=== PATIENT | male | born 1960 | race Two or more races ===

== ENCOUNTER 2024-06-22 22:13 | Inpatient (IN) | payer OTHER ==
[~2024-06-22] VITALS: Ht 172.7 cm; Wt 114.9 kg
--- NOTE | 2024-06-22 22:22 | ED.PDOC ---
HPI Comments HPI: Poor Historian. 64-year-old male presents to the emergency department for one day history of left-sided chest pain nonradiating constant worse with deep inspiration. This happened while he was at rest at home 2 hours prior to arrival. Patient tried to shower see if the pain goes away but it did not. Patient has associated nonspecific shortness of breath. Past Medcial History: Diabetes, hypertension, hyperlipidemia Past Surgical History: Denies any Denies any allergies Patient denies any tobacco abuse REVIEW OF SYSTEMS: CONSTITUTIONAL: Denies acute: fever, diaphoresis, chills, generalized weakness. HEAD: Denies acute: headache, photophobia Eyes: Denies acute: Double vision, vision loss, eye pain, eye discharge. EARS: Denies acute: tinnitus, hearing loss, ear discharge, ear pain, THROAT: Denies acute: sore throat, swelling, difficulty swallowing , pain with swallowing, change in voice. NECK: Denies acute: neck pain, neck swelling, stiff neck. HEART: Denies acute : palpitations, LUNGS: Denies acute: wheezing, cough, hemoptysis ABDOMEN: Denies acute: abdominal pain, Nausea, Vomiting, diarrhea, melena , hematemesis, hematochezia SKIN: Denies acute: rash, redness, lesions, itchiness. EXTREMITIES: Denies acute: calf pain, numbness, tingling, weakness, denies pain in extremity. Denies acute: Low back pain. Neuro: Denies acute: focal neurological deficit, motor or sensory focal neurological deficit, tremors, seizure like activity, confusion, dizziness, change in mental status, loss of bowel or bladder function, cauda equina like symptoms. : Denies acute: dysuria, hematuria, flank pain, increase in urinary frequency. PSYCH: Denies acute: hallucination, suicidal ideation, homicidal ideation. PHYSICAL EXAM: General: no acute distress, awake and alert. Head: normocephalic, atraumatic. Neck: supple, trachea is midline, no swelling. Throat: Normal phonation. Eyes:, no erythema, no purulent discharge, no proptosis, no icterus. Heart: regular rate, regular rhythm, no significant murmur appreciated. Lungs: no apparent respiratory distress, Able to speak in full sentences. No wheezing, no rhonchi, no crackles. No stridors Clear to auscultation bilaterally. Abdomen: non tender to palpation, non distended, soft, no guarding, no rebound, + bowel sounds. Obese Neuro: Awake, Alert, oriented to name, self, situation, follows commands GCS=15. Speech is normal. Skin: no petechia, no purpura, no cyanosis, non-pale, not jaundice. Lower extremities: --1/4 bilateral - Pitting edema no deformity, no focal swelling, no calf TTP. Makes eye contact. moves all four extremities. Face: no apparent facial droop. Ambulating in the ED independently. Time Seen by MD: 22:15 Reviewed Notes: Nurses Notes, Medications, Allergies Allergies: Coded Allergies: NO KNOWN ALLERGIES (Unverified , 06/22/24) Home Meds Reported Medications Empagliflozin (Jardiance) 10 Mg Tab, 10 MG PO, TAB 06/23/24 Atorvastatin Calcium (ATORVASTATIN CALCIUM) 40 Mg Tab, 1 TAB PO QPM, #90 TAB 3 Refills 06/23/24 Atenolol (Atenolol) 25 Mg Tab, 1 TAB PO DAILY, #30 TAB 5 Refills 06/23/24 Losartan Potassium (Losartan Potassium) 25 Mg Tab, 1 TAB PO DAILY, #90 TAB 1 Refill 06/23/24 Metformin Hydrochloride (Metformin Hcl) 1,000 Mg Tab, 1 TAB PO BID, #60 TAB 5 Refills 06/23/24 Information Source: Patient Was a procedure done? Was a procedure done?: No CP Differential Dx Differential Diagnosis: N/A Differential Diagnosis: Other (Ddx include but not limitied to gastritis, musculoskeletal pain, radiculopathy, atypical chest pain, dissection, aneurysm, ACS, unstable angina, hiatal hernia, GERD, anxiety, costochondritis, PE, pneumothroax, neoplasm, cardiac ischemia, drug abuse, anemia.) X-Ray, Labs, Meds, VS Vital Signs Date Time Temp Pulse Resp B/P (MAP) Pulse Ox O2 Delivery O2 Flow Rate FiO2 06/22/24 22:18 90 06/22/24 22:13 98.2 93 20 152/69 (96) 93 Lab Test 06/22/24 22:21 Range/Units White Blood Count 14.6 H 4.4-10.8 10^3/uL Red Blood Count 5.48 4.5-5.90 10^6/uL Hemoglobin 14.8 13.5-17.5 g/dL Hematocrit 45.7 41.0-53.0 % Mean Corpuscular Volume 83.5 80.0-100.0 fL Mean Corpuscular Hemoglobin 27.0 L 28.0-32.0 pg Mean Corpuscular Hemoglobin Concent 32.4 32.0-36.0 g/dL Red Cell Distribution Width 14.1 11.8-14.3 % Platelet Count 354 140-450 10^3/uL Mean Platelet Volume 7.4 6.9-10.8 fL Neutrophils (%) (Auto) 67.5 37.0-80.0 % Lymphocytes (%) (Auto) 21.9 10.0-50.0 % Monocytes (%) (Auto) 7.3 0.0-12.0 % Eosinophils (%) (Auto) 2.4 0.0-7.0 % Basophils (%) (Auto) 0.9 0.0-2.0 % Neutrophils # (Auto) 9.9 H 1.6-8.6 10 ^3/uL Lymphocytes # (Auto) 3.2 0.4-5.4 10 ^3/uL Monocytes # (Auto) 1.1 0-1.3 10 ^3/uL Eosinophils # (Auto) 0.3 0-0.8 10 ^3/uL Basophils # (Auto) 0.1 0-0.2 10 ^3/uL Nucleated Red Blood Cells 0.2 % Erythrocyte Sedimentation Rate 13 0-20 mm/hr D-Dimer, Quantitative 0.34 0.0-0.49 mg/L FEU Sodium Level 136 136-145 mmol/L Potassium Level 3.8 3.5-5.1 mmol/L Chloride Level 105 98-107 mmol/L Carbon Dioxide Level 25 20-31 mmol/L Anion Gap 6 5-15 Blood Urea Nitrogen 6 L 9-23 mg/dL Creatinine 1.02 0.700-1.30 mg/dL Glomerular Filtration Rate Calc 83 >90 mL/min BUN/Creatinine Ratio 5.9 L 10.0-20.0 Serum Glucose 235 H 74-106 mg/dL Hemoglobin A1c 8.2 H <5.7 % A1C Calcium Level 9.4 8.7-10.4 mg/dL Total Bilirubin 0.4 0.2-1.0 mg/dL Aspartate Amino Transferase (AST) 23 13-40 U/L Alanine Aminotransferase (ALT) 30 7-40 U/L Alkaline Phosphatase 53 46-116 U/L Troponin I High Sensitivity < 3 L </=54 ng/L C-Reactive Protein High Sensitivity 0.30 <1.0 mg/dL B-Type Natriuretic Peptide 16.52 0-100 pg/mL Total Protein 7.4 5.7-8.2 g/dL Albumin 4.4 3.2-4.8 g/dL Vitamin B12 Level 259 211-911 pg/mL Vitamin D 25-Hydroxy 18.2 L 30.0-100 ng/mL Thyroid Stimulating Hormone (TSH) 2.08 0.55-4.78 uIU/mL [place] [address] Ph: [phone] DIAGNOSTIC IMAGING Diagnostic Imaging Report : [id number] Signed PATIENT: SADIE MCCORMICK ACCT: [id number] UNIT: [id number] : 1960 LOC: TELE ROOM / BED: [address] [place] [address] AGE / SEX: 64 / M ADM STATUS: ADM IN SERVICE 17 ORDERING PHYSICIAN: MANJEET DRAKE DO PROCEDURE(s): CXRP - CHEST PORTABLE REASON: cp ORDER NUMBER(s): [id number], ACCESSION NUMBER(s): [id number] CHEST RADIOGRAPH Indication:cp Technique: Single frontal view of the chest was obtained Comparison: None FINDINGS: Lines and Tubes: None Lungs: No focal consolidation. Pleura: No effusion. No pneumothorax. Cardiomediastinal contours: Unremarkable Bones: No acute osseous abnormality. IMPRESSION: No acute cardiopulmonary disease. ATED BY: ALESHA ALCALA DO DICTATED DATE/TIME: 06/22/242358 SIGNED BY: ALESHA ALCALA DO SIGNED DATE/TIME: 06/22/242358 CC: Time of 1ST Reevaluation: 22:40 Reevaluation 1ST: Improved Patient Education/Counseling: Diagnosis, Treatment Family Education/Counseling: No Family Present Comments Patient presented with the above HPI.-cardiac-----workup was initiated. patient was found with the above mentioned diagnosis. Patient was given: Aspirin and nitroglycerin sublingually Patient ED course and VS have been stabilized. Patient has been reassessed in the ED and remained in a stable condition. Pertinent incidental findings were discussed with the patient and/or family. Patient/family voices understanding and is agreeable with plan. Patient has been observed in the ED adequate length of time to insure improvement/stability. patient was admitted to the medicine team for further evaluation and treatment of their presentation. All the reports of any imaging studies that were ordered by myself were reviewed by myself. Departure 1 Departure Time of Disposition: 22:48 Impression: Primary Impression: Chest pain Disposition: ADMITTED INPATIENT Condition: Guarded Discharged With: Self Critical Care Note Critical Care Time?: No Heart Score Heart Score: Heart Score Response (Comments) Value History Slightly Suspicious 0 EKG Normal 0 Age 45-64 1 Risk Factors >3 or Hx ASHD 2 Troponin Normal limit 0 Total 3 MANJEET DRAKE DO Jun 22, 2024 22:22
[2024-06-22 22:35] LABS: Basophils # (auto) 0.1 10 ^3/uL (0-0.2); Basophils % (auto) 0.9 % (0.0-2.0); Eosinophils # (auto) 0.3 10 ^3/uL (0-0.8); Eosinophils % (auto) 2.4 % (0.0-7.0); Hematocrit 45.7 % (41.0-53.0); Hemoglobin 14.8 g/dL (13.5-17.5); Lymphocytes # (auto) 3.2 10 ^3/uL (0.4-5.4); Lymphocytes % (auto) 21.9 % (10.0-50.0); Mean Corpuscular Hgb Conc. 32.4 g/dL (32.0-36.0); Mean Corpuscular Volume 83.5 fL (80.0-100.0); Monocytes # (auto) 1.1 10 ^3/uL (0-1.3); Monocytes % (auto) 7.3 % (0.0-12.0); Neutrophils # (auto) 9.9 10 ^3/uL (1.6-8.6); Neutrophils % (auto) 67.5 % (37.0-80.0); Nucleated Red Blood Cells % 0.2 %; Platelet Count (auto) 354 10^3/uL (140-450); Red Blood Cells 5.48 10^6/uL (4.5-5.90); Red Cell Distribution Width 14.1 % (11.8-14.3); White Blood Cell 14.6 10^3/uL (4.4-10.8)
[2024-06-22 22:46] LABS: Alanine Aminotransferase 30 U/L (7-40); Albumin 4.4 g/dL (3.2-4.8); Alkaline Phosphatase 53 U/L (46-116); Anion Gap 6 (5-15); Aspartate Aminotransferase 23 U/L (13-40); BUN/Creatinine Ratio 5.9 (10.0-20.0); Blood Urea Nitrogen 6 mg/dL (9-23); Calcium 9.4 mg/dL (8.7-10.4); Carbon Dioxide 25 mmol/L (20-31); Chloride 105 mmol/L (98-107); Glucose 235 mg/dL (74-106); Potassium 3.8 mmol/L (3.5-5.1); Sodium 136 mmol/L (136-145)
[2024-06-22 22:47] LABS: Bilirubin, Total 0.4 mg/dL (0.2-1.0); Total Protein 7.4 g/dL (5.7-8.2)
--- NOTE | 2024-06-22 23:14 | DVHHPRES ---
History of Present Illness Resident Creating Document: MAYURI WARREN RESIDENT History of Present Illness This is a 64 years old male with past medical history of hypertension, hyperlipidemia, type 2 diabetes mellitus presented to the ED with a chief complaint of left-sided chest pain for 2 hours prior to this admission. Acco rding to the patient the pain is sharp stabbing, localized 8/10 and aggravated with deep breathing with no relieving factor and associated with dry cough and shortness of breath. He mentioned he never had this kind of pain before . The patient recently traveled to [place] and today he came back from [place] and denies any sick contact. Patient also denies dizziness, diaphoresis abdominal pain, nausea, vomiting or any change in bowel and bladder habit. PCP: Dr. Agustin Gonzalez Cardiovascular: HTN, hyperipidemia Endocrine: Diabetes Past Surgical History: None Family History: None Lives: with Family Past Social History Smoker 5 cigarettes/day for 40 yrs, occasional drinker and never tried any drugs Review of Systems Constitutional: No: Fever, Chills, Sweats, Weakness, Malaise, Other Eyes: No: Pain, Vision change, Conjunctivae inflammation, Eyelid inflammation, Other, Redness ENT: No: Ear pain, Ear discharge, Nose pain, Nose discharge, Nose congestion, Mouth pain, Mouth swelling, Throat pain, Throat swelling, Other Respiratory: Cough, Dry, Shortness of breath; No: SOB with excertion, Wheezing, Hemoptysis, Pleuritic Pain, Sputum, Wheezing, Other Cardiovascular: Chest Pain; No: Palpitations, Orthopnea, Paroxysmal Noc. Dyspnea, Edema, Lt Headedness, Other Gastrointestinal: No: Nausea, Vomiting, Abdominal Pain, Diarrhea, Constipation, Melena, Hematochezia, Other Genitourinary: No Dysuria, No Frequency, No Incontinence, No Hematuria, No Re tention, No Other Musculoskeletal: No: other, neck pain, shoulder pain, arm pain, back pain, hand pain, leg pain, foot pain Skin: No: Rash, Lesions, Jaundice, Bruising, Other Neurological: No: Weakness, Numbness, Incoordination, Change in speech, Confusion, Seizures, Other Allergies: Coded Allergies: NO KNOWN ALLERGIES (Unverified , 06/22/24) Exam Vital Signs Vital Signs Date Time Temp Pulse Resp B/P (MAP) Pulse Ox O2 Delivery O2 Flow Rate FiO2 06/22/24 22:18 90 10/28/24 22:13 98.2 20 152/69 (96) 93 General Appearance: Alert, Oriented X3, Cooperative, mild distress HEENT: Atraumatic, PERRLA, EOMI, Mucous membr. moist/pink Respiratory: Clear to auscultation, Normal air movement Cardiovascular: Regular rate, Normal S1, Normal S2, No murmurs Abdominal: Normal bowel sounds, Soft, No tenderness, No hepatospenomegaly, No masses Extremities: No clubbing, No cyanosis, No edema, Normal pulses, No tenderness/swelling Skin: No rashes, No breakdown, No significant lesion Neuro: Normal gait, Normal speech, Strength at 5/5 X4 ext, Normal tone, Sensation intact, Other (Grossly intact cranial nerves) Psych/Mental Status: Mental status NL, Mood NL Labs/Xrays Labs Test 06/22/24 22:21 Range/Units White Blood Count 14.6 H 4.4-10.8 10^3/uL Red Blood Count 5.48 4.5-5.90 10^6/uL Hemoglobin 14.8 13.5-17.5 g/dL Hematocrit 45.7 41.0-53.0 % Mean Corpuscular Volume 83.5 80.0-100.0 fL Mean Corpuscular Hemoglobin 27.0 L 28.0-32.0 pg Mean Corpuscular Hemoglobin Concent 32.4 32.0-36.0 g/dL Red Cell Distribution Width 14.1 11.8-14.3 % Platelet Count 354 140-450 10^3/uL Mean Platelet Volume 7.4 6.9-10.8 fL Neutrophils (%) (Auto) 67.5 37.0-80.0 % Lymphocytes (%) (Auto) 21.9 10.0-50.0 % Monocytes (%) (Auto) 7.3 0.0-12.0 % Eosinophils (%) (Auto) 2.4 0.0-7.0 % Basophils (%) (Auto) 0.9 0.0-2.0 % Neutrophils # (Auto) 9.9 H 1.6-8.6 10 ^3/uL Lymphocytes # (Auto) 3.2 0.4-5.4 10 ^3/uL Monocytes # (Auto) 1.1 0-1.3 10 ^3/uL Eosinophils # (Auto) 0.3 0-0.8 10 ^3/uL Basophils # (Auto) 0.1 0-0.2 10 ^3/uL Nucleated Red Blood Cells 0.2 % D-Dimer, Quantitative 0.34 0.0-0.49 mg/L FEU Sodium Level 136 136-145 mmol/L Potassium Level 3.8 3.5-5.1 mmol/L Chloride Level 105 98-107 mmol/L Carbon Dioxide Level 25 20-31 mmol/L Anion Gap 6 5-15 Blood Urea Nitrogen 6 L 9-23 mg/dL Creatinine 1.02 0.700-1.30 mg/dL Glomerular Filtration Rate Calc 83 >90 mL/min BUN/Creatinine Ratio 5.9 L 10.0-20.0 Serum Glucose 235 H 74-106 mg/dL Calcium Level 9.4 8.7-10.4 mg/dL Total Bilirubin 0.4 0.2-1.0 mg/dL Aspartate Amino Transferase (AST) 23 13-40 U/L Alanine Aminotransferase (ALT) 30 7-40 U/L Alkaline Phosphatase 53 46-116 U/L Troponin I High Sensitivity < 3 L </=54 ng/L B-Type Natriuretic Peptide 16.52 0-100 pg/mL Total Protein 7.4 5.7-8.2 g/dL Albumin 4.4 3.2-4.8 g/dL Assessment/Plan Assessment/Plan Assessment and plan: # Chest pain rule out ACS - Initial EKG and troponins are unremarkable - Ordered echo. # Chest pain likely due to pneumonitis - Patient complains of sharp left-sided chest pain with dry cough - History of traveling present - Chest x-ray revealed no acute cardiopulmonary disease - Patient is on 3 L oxygen with saturation 94% - Started IV ceftriaxone 1 g daily and IV azithromycin 500 mg daily # Acute respiratory failure likely due to pneumonitis - Patient is on 3 L oxygen with saturation 94% # Hypertensive heart disease - Losartan 25 mg daily and IV hydralazine 10 mg q.6 p.r.n. # Type 2 diabetes mellitus, HbA1C 8.2% - Moderate sliding scale of insulin - Counseled patient regarding healthy low carb diet, lifestyle modification and physical exercise # Vitamin-D deficiency - Vitamin D 77014 units Q 7D # DVT prophylaxis - Ordered Doppler scan of the lower limb - Lovenox 40 mg sc daily Goal of care discussed with the patient for more than 20 minutes full code Plan of treatment discussed with Dr. Neil. Plan discussed with: Patient, Other My Orders Orders - MAYURI WARREN RESIDENT Procedure Category Date Status Time Admit ADMIT 06/22/24 Transmitted 23:10 Allergies RENE 06/22/24 In Process 23:10 Code Status CODE 06/22/24 Transmitted 23:10 Sodium Chloride Lock PHA 06/23/24 Transmitted (Saline Lock Ns) 06:00 Oxygen Per Hour RT 06/22/24 Transmitted 23:10 Acetaminophen Tablet PHA 06/22/24 Transmitted (Tylenol Tablet) 23:15 Hydrocodone-Acet PHA 06/22/24 Transmitted 5/325mg Tab ([place] 23:15 Ondansetron Hcl PHA 06/22/24 Transmitted (Zofran) 23:15 Enoxaparin Sodium PHA 06/23/24 Transmitted (Lovenox) 10:00 Complete Blood Count LAB 06/23/24 Verified 04:00 Comprehensive LAB 06/23/24 Verified Metabolic Panel 04:00 Cardiac DIET 06/23/24 Transmitted Diet-2gna,Lofat,Lochol Breakfast Echo 2d Mode Cardiac US 06/22/24 Logged DOP 23:10 Nitroglycerin PHA 06/22/24 Transmitted Sublingual (Ntrostat 23:15 Morphine Sulfate PHA 06/22/24 Transmitted Injection 23:15 Oxygen By Nasal RT 06/22/24 Transmitted Cannula 23:10 Stat Ekg For Chest [facility] 06/22/24 In Process Pain 23:10 Notify Md Of Changes [facility] 06/22/24 In Process From Base 23:10 Presidential Support Specialist For [facility] 06/22/24 In Process 24 Hours 23:10 Emergency Dysrhythmia [facility] 06/22/24 In Process Protocol 23:10 Rhythm Strips Once [facility] 06/22/24 In Process Every Shift 23:10 Drug Screen LAB 06/22/24 Transmitted 23:10 Date of Service: Jun 22, 2024 Billing Provider: STEPHANE NEIL MD Common Visit Codes: [id number] INP/OBS CARE (HIGH) MAYURI WARREN RESIDENT Jun 22, 2024 23:14 STEPHANE NEIL MD Jun 23, 2024 08:58
[2024-06-22] MEDS ORDERED: ACETAMINOPHEN 325 MG TAB PO PRN (23:15)
[2024-06-22] MEDS ORDERED: ONDANSETRON HCL 4 MG/2 ML VIAL IV PRN (23:15)
[2024-06-22] MEDS ORDERED: MORPHINE SULFATE INJ 2 MG/ml SYRG IV PRN (23:15)
[2024-06-22] MEDS ORDERED: NITROGLYCERIN 0.4 MG SL TAB SL PRN (23:15)
--- NOTE | 2024-06-22 23:20 | ECG ---
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
--- NOTE | 2024-06-22 23:31 | ECG ---
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
[2024-06-23] MEDS: ASPirin 325 MG TAB PO ONE
[2024-06-23] MEDS ORDERED: hydrALAZINE HCL 20 MG/ML VL IV PRN
--- NOTE | 2024-06-23 00:01 | DVH ---
CHEST RADIOGRAPH Indication:cp Technique: Single frontal view of the chest was obtained Comparison: None FINDINGS: Lines and Tubes: None Lungs: No focal consolidation. Pleura: No effusion. No pneumothorax. Cardiomediastinal contours: Unremarkable Bones: No acute osseous abnormality. IMPRESSION: No acute cardiopulmonary disease.
[2024-06-23] MEDS: NITROGLYCERIN 0.4 MG SL TAB SL ONE (00:02)
[2024-06-23 00:11] LABS: Erythrocyte Sedimentation Rate 13 mm/hr (0-20)
[2024-06-23] MEDS ORDERED: DEXTROSE (50%) 50ML SYRG IV PRN (00:15)
[2024-06-23] MEDS: LOSARTAN POTASSIUM 25 MG TAB PO ONE (00:24)
--- NOTE | 2024-06-23 01:33 | ECG ---
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
[2024-06-23] MEDS: cefTRIAXone 1GM/50ML D5W 50 ML IV ONE (02:14)
[2024-06-23] MEDS: HYDROcodone-ACET 5/325MG TAB PO PRN (02:14)
[2024-06-23 02:32] LABS: Basophils # (auto) 0.1 10 ^3/uL (0-0.2); Basophils % (auto) 0.6 % (0.0-2.0); Eosinophils # (auto) 0.3 10 ^3/uL (0-0.8); Eosinophils % (auto) 2.5 % (0.0-7.0); Hematocrit 41.5 % (41.0-53.0); Hemoglobin 13.8 g/dL (13.5-17.5); Lymphocytes # (auto) 2.6 10 ^3/uL (0.4-5.4); Mean Corpuscular Hemoglobin 27.6 pg (28.0-32.0); Mean Corpuscular Hgb Conc. 33.2 g/dL (32.0-36.0); Mean Corpuscular Volume 83.2 fL (80.0-100.0); Monocytes % (auto) 8.1 % (0.0-12.0); Neutrophils # (auto) 8.4 10 ^3/uL (1.6-8.6); Neutrophils % (auto) 67.8 % (37.0-80.0); Nucleated Red Blood Cells % 0.1 %; Platelet Count (auto) 328 10^3/uL (140-450); Red Blood Cells 4.98 10^6/uL (4.5-5.90); White Blood Cell 12.4 10^3/uL (4.4-10.8)
[2024-06-23 02:48] LABS: Alanine Aminotransferase 27 U/L (7-40); Albumin 4.1 g/dL (3.2-4.8); Alkaline Phosphatase 48 U/L (46-116); Anion Gap 9 (5-15); Aspartate Aminotransferase 20 U/L (13-40); BUN/Creatinine Ratio 6.5 (10.0-20.0); Blood Urea Nitrogen 6 mg/dL (9-23); Calcium 9.2 mg/dL (8.7-10.4); Carbon Dioxide 27 mmol/L (20-31); Chloride 100 mmol/L (98-107); Glucose 170 mg/dL (74-106); Potassium 3.6 mmol/L (3.5-5.1); Sodium 136 mmol/L (136-145)
[2024-06-23 02:49] LABS: Bilirubin, Total 0.4 mg/dL (0.2-1.0); Total Protein 7.1 g/dL (5.7-8.2)
[2024-06-23] MEDS: CYANOCOBALAMIN (B-12) 1000 MCG/1 ML VIAL IM ONE (03:24)
[2024-06-23] MEDS: ERGOCALCIFEROL 50,000 UNIT(1.25MG) CAP PO SCH (03:25)
--- NOTE | 2024-06-23 04:00 | DVH ---
Bilateral lower extremity venous duplex Clinical History: edema Comparison: None Technique: Duplex Doppler evaluation of the deep venous systems of both lower extremities from the common femora l veins to the popliteal veins including color Doppler and spectral/pulsed waveform analysis was perf ormed. Findings: RIGHT SIDE: The common femoral vein demonstrates appropriate compressibility and waveform variability. There is compressibility/patency of the great saphenous vein at the proximal thigh. The femoral vein demonstrates appropriate compressibility and waveform variability. The deep femoral vein demonstrates appropriate compressibility and waveform variability. The popliteal vein demonstrates appropriate compressibility and waveform variability. There is normal compressibility at the tibioperoneal trunk. LEFT SIDE: The common femoral vein demonstrates appropriate compressibility and waveform variability. There is compressibility/patency of the great saphenous vein at the proximal thigh. The femoral vein demonstrates appropriate compressibility and waveform variability. The deep femoral vein demonstrates appropriate compressibility and waveform variability. The popliteal vein demonstrates appropriate compressibility and waveform variability. There is normal compressibility at the tibioperoneal trunk. Impression: No right or left femoropopliteal venous thrombosis.
[2024-06-23] MEDS: SODIUM CHLOR 0.9% PF (SALINE LOCK) 10ML VIAL/SYR IV SCH (05:59)
[2024-06-23] MEDS: ACCU-CHEK COMFORT CURVE STRIP VI SCH (06:35)
[2024-06-23] MEDS: InsuLIN REG 1unit/0.01ml Soln (100units/ml) SC SCH ×2 (06:37→21:23)
[2024-06-23 07:50] VITALS: PULSE 60; RESP 17; O2SAT 98
[2024-06-23] MEDS ORDERED: ERGOCALCIFEROL 50,000 UNIT(1.25MG) CAP PO SCH (10:00)
[2024-06-23] MEDS: LOSARTAN POTASSIUM 25 MG TAB PO SCH (10:29)
[2024-06-23] MEDS: ENOXAPARIN SOD 40 MG/0.4 ML SYRINGE SC SCH (10:30)
[2024-06-23] MEDS: AZITHROMYCIN 500MG/ 250ML 250 ML IV SCH (10:30)
--- NOTE | 2024-06-23 13:15 | DVHSR ---
APPROVED REPORT EXAM: Two-dimensional and M-mode echocardiogram with Doppler and color Doppler. Blood Pressure: 125/77 mmHg INDICATION Chest Pain RISK FACTORS Obesity: Height: 5'8", Weight: 250 DIMENSIONS LVDd4.6 (3.8-5.7cm)LA (2D)3.1 (1.9-4.0cm)Aortic Root3.4 (2.0-3.7cm) LVDs3.3 (2.5-4.0cm)LA (MM) (1.9-4.0cm)Aortic Cusp Exc1.8 (1.5-2.0cm) EF (%) 55.0 (55-70%)Rt. Atrium3.2 (1.9-4.0cm)Asc. Aorta cm IVSd1.2 (0.7-1.1cm)RV (D) (1.8-2.4cm) PWd1.3 (0.7-1.1cm) Mitral Valve MitralMitral Stenosis E wave0.90m/sMV Mean GR.mmHg A wave0.88m/sMV Peak GR.mmHg E/A ratio1.02D MVAcm2 DECEL [id number] 1/2 Tim[place] Aortic Valve Aortic ValveAortic Stenosis V11.00m/Jim Mean GR.4mmHg V21.31m/Jim Peak GR.7mmHg LVOT Diameter2.3 (1.8-2.4cm)Doppler AVA3.17cm2 Pulmonic Valve V20.92m/s Other Information Technically limited study due to body habitus. Conclusion Normal left ventricular size and dimension. Normal left ventricular systolic function estimated ejec tion fraction 55%. There is a grade 1 diastolic dysfunction. Normal right ventricular size and dimension. Normal right ventricular systolic function. Normal biatrial size and dimension. Normal aortic valve structure and function. Normal mitral valve structure and function. Normal tricuspid valve structure and function. The pulmonary valve is grossly normal. No pericardial effusion.
[2024-06-23 14:25] VITALS: BP 143/68; PULSE 80; RESP 19; TEMP 97.9; O2SAT 95
[2024-06-23 15:39] VITALS: BP 132/60; PULSE 77; RESP 18; TEMP 97.8; O2SAT 95; O2SAT 96
--- NOTE | 2024-06-23 15:58 | DVHPNRES ---
Progress Note Date Seen: Jun 23, 2024 Resident Creating Document: ROSEMARY BARAJAS RESIDENT Has the PT tested + for MRSA If YES, has PT been informed?: No Medical Necessity Reason Pt with a Central, PICC or Fol: No Subjective Review of Systems This is a 64 years old male with past medical history of hypertension, hyperlipidemia, type 2 diabetes mellitus presented to the ED with a chief complaint of left-sided chest pain for 2 hours prior to this admission. According to the patient the pain is sharp stabbing, localized 8/10 and aggravated with deep breathing with no relieving factor and associated with dry cough and shortness of breath. He mentioned he never had this kind of pain before . The patient recently traveled to [place] and today he came back from [place] and denies any sick contact. Upon my examination the patient had slight reproducible pain in the left upper chest with deep palpation but states that the pain is different from the one he was experiencing before. Patient also denies dizziness, diaphoresis abdominal pain, nausea, vomiting or any change in bowel and bladder habit. Patient was admitted for further assessment and management. Patient seen and examined at bedside. Upon my examination, the patient denies any chest pain, shortness of breath or fever at this time. Upon deep palpation of the left upper chest at the level of the 5th intercostal space there is tenderness reproducible with deep palpation. The patient states that this pain is slightly different from the one that he was experiencing before coming to the hospital. Initial labs were showing a WBC of 14.6 which now slightly decrease it to 12.4. Troponins were negative and BNP was 16.52. D-dimer was on normal range at 0.34, EKG was showing sinus rhythm. Chest x-ray was grossly unremarkable and bilateral lower extremity Doppler ultrasound showed no evidence of DVTs. We will order a CT scan of the chest to completely rule out pneumonia or any ongoing cardiopulmonary disease but everything is pointing to a pleuritic type of pain/musculoskeletal. ROS Constitutional: Denies weight loss, fever and chills. HEENT: Denies changes in vision and hearing. Respiratory: Denies shortness of breath and cough Cardiovascular: Denies chest discomfort or palpitations GI: Denies abdominal pain, nausea, vomiting and diarrhea. : Denies dysuria and urinary frequency. Musculoskeletal: Denies myalgias and joint pain Skin: Denies rash and pruritus. Neurological: Denies dizziness, headache, vision or hearing problems Objective vital signs Vital Sign Date Time Temp Pulse Resp B/P (MAP) Pulse Ox O2 Delivery O2 Flow Rate FiO2 06/23/24 14:25 97.9 80 19 143/68 (93) 95 97.9 06/23/24 07:50 Room Air* 0 21 Total Intake and Output 06/22/24 06/22/24 06/23/24 14:59 22:59 06:59 Intake Total 50 ml Balance 50 ml medications Current Medications Medications Dose Ordered Sig/Tree Route Start Time Stop Time Status Last Admin Dose Admin Sodium Chloride 10 ml Q8HR IV 06/23/24 06:00 06/23/24 14:08 10 ML Acetaminophen 325 mg Q4HP PRN PO 06/22/24 23:15 Acetaminophen/ Hydrocodone Bitart 1 tab Q4HP PRN PO 06/22/24 23:15 06/23/24 02:14 1 TAB Ondansetron HCl 4 mg Q4HP PRN IV 06/22/24 23:15 Enoxaparin Sodium 40 mg DAILY SC 06/23/24 10:00 06/23/24 10:30 40 MG Nitroglycerin 0.4 mg Q5MINP PRN SL 06/22/24 23:15 Morphine Sulfate 2 mg Q30M PRN IV 06/22/24 23:15 Losartan Potassium 25 mg DAILY PO 06/23/24 10:00 06/23/24 10:29 25 MG Hydralazine HCl 10 mg Q6HPRN PRN IV 06/23/24 00:00 Diagnostic Test (Pha) 1 strip ACHS 06/23/24 07:00 06/23/24 12:57 1 STRIP Insulin Human Regular HS SC 06/23/24 22:00 Insulin Human Regular AC SC 06/23/24 07:00 06/23/24 13:01 2 UNITS Dextrose 50 ml UD PRN IV 06/23/24 00:15 Ceftriaxone Sodium 50 ml @ 100 mls/hr HS IV 06/23/24 22:00 Azithromycin 250 ml @ 125 mls/hr DAILY IV 06/23/24 10:00 06/23/24 10:30 125 MLS/HR Ergocalciferol 50,000 unit Q7D PO 06/23/24 02:45 06/23/24 03:25 50,000 UNIT Examination Physical Examination General: Patient alert and oriented in person, place and time. Patient following commands. HEENT: Normocephalic, atraumatic, moist mucous membranes Respiratory/pulmonary: Clear lungs bilaterally, no associated crackles or wheezes. Cardiovascular: Normal regular heart sounds S1 and S2 with no associated murmurs. There is reproducible pain to palpation at the left upper chest. Abdomen: Abdomen nondistended, there is no pain to palpation in any of the abdominal quadrants, no palpable masses. Extremities: There is no peripheral edema present at the lower extremities. Peripheral Pulses: 3+ Radial (R). 3+ Radial (L). 3+ Dorsalis pedis (R). 3+ Dorsalis pedis(L) Skin: No rashes or pruritus, there is no sacral edema present at this time. Neurological: Intact cranial nerves with no focal neurologic deficits laboratory and microbiology Laboratory Tests 06/23/24 02:15 Test 06/23/24 02:15 Range/Units Serum Glucose 170 H 74-106 mg/dL Problem List/Assessment/Plan Problem List/Assessment/Plan Assessment/Plan Acute chest pain likely pleuritic/musculoskeletal, ACS ruled out -initial EKG was showing sinus rhythm with no ST segment elevation or depression -initial troponins were negative -ordered echocardiogram which showed an LVEF of 55% with grade 1 diastolic dysfunction, normal cardiac valves and no pericardial effusion. -CRP and ESR were both on normal range -initial chest x-ray was grossly unremarkable Possible gram +/- pneumonia, r/o pneumonitis -initial chest x-ray was grossly unremarkable -ordered CT scan of the chest without contrast -continue IV ceftriaxone azithromycin -Hx of recent travel -Patient requiring 3 L of O2 which was recently titrated down Acute respiratory failure likely due to above. Ruled out PE -Bilateral lower extremity venous Doppler showed no evidence of DVTs -D-dimer was normal range at 0.34 -Continue current ABS -Ordered CT scan of the chest Primary hypertension -continue losartan 25 mg q.d. -monitor blood pressure closely Vitamin-D deficiency -Vit D was 18.2 [place] [address] units weekly -Monitor as outpatient Type II Diabetes Mellitus -Last Hba1c was 8.2% -Continue SSI -No need of lantus at this time, Monitor Blood glucose DVT prophylaxis -Enoxaparin 40mg SC QD Goals of care discussed with the patient for > 23min, FULL CODE Plan discussed with Dr. Galvin Plan discussed with: Patient My Orders My Orders Orders - ROSEMARY BARAJAS Procedure Category Date Status Time Chest Without Contrast CT 06/23/24 Transmitted 15:34 Date of Service: Jun 23, 2024 Billing Provider: JOY GALVIN MD Common Visit Codes: 68096-[id number] INP/OBS CARE(HIGH) Secondary Visit Codes: 48168-[id number] CARE PLAN 30 MINUTES ROSEMARY BARAJAS Jun 23, 2024 15:58 JOY GALVIN MD Jun 23, 2024 20:42
[2024-06-23] MEDS ORDERED: METF-372 PO (16:08)
[2024-06-23] MEDS ORDERED: ATOR40TA52 PO (16:08)
[2024-06-23] MEDS ORDERED: ATEN-60 PO (16:08)
[2024-06-23] MEDS ORDERED: EMPA1TAB PO (16:08)
[2024-06-23] MEDS ORDERED: LOSA-533 PO (16:08)
[2024-06-23 16:50] VITALS: BP 132/74; PULSE 85; RESP 19; TEMP 98.2; O2SAT 93
[2024-06-23 20:00] VITALS: PULSE 91; RESP 18; O2SAT 96
[2024-06-23 21:00] VITALS: BP 145/68; PULSE 78; RESP 18; TEMP 98.2; O2SAT 93
[2024-06-23] MEDS: cefTRIAXone 1GM/50ML D5W 50 ML IV SCH (21:20)
[2024-06-23 22:33] LABS: Urine Bacteria None Seen /hpf (None Seen)
[2024-06-23 22:55] LABS: Urine Blood Negative /uL (Negative); Urine Clarity Clear (Clear); Urine Color Light-Yellow (Yellow); Urine Protein, UAD Negative (Negative); Urine Specific Gravity 1.035 (1.001-1.035); Urine Urobilinogen Normal (Negative); Urine WBC 1 /hpf (0 - 3)
[2024-06-23 22:58] LABS: Amphetamine Screen, Urine Neg (NEGATIVE); Barbiturate Scree,Urine Neg (NEGATIVE); Benzodiazephine Screen, Urine Neg (NEGATIVE); Cannabinoid Screen, Urine Neg (NEGATIVE); Cocaine Screen, Urine Neg (NEGATIVE); Opiate Scree,Urine Neg (NEGATIVE); Phencyclidine Screen, Urine Neg (NEGATIVE)
--- NOTE | 2024-06-24 04:14 | DVH ---
Procedure: CT CHEST WITHOUT CONTRAST Reason for study/Clinical History: exclude pneumonia Comparison Study: None available at time of dictation. Exam Date: 06/23/2024 11:40 PM TECHNIQUE: Multidetector CT of the chest was performed from the lung apices to the upper abdomen with out the use of intravenous contract. Axial, coronal and sagittal multiplanar reformats were performed . Radiation Dose Information: CT Dose: CTDI volume is 26.4 mGy. Dose-length product is 1046.49 mGy*cm The dose indicators for CT are the volume Computed Tomography (CT) Dose Index (CTDIvol) and the Dose Length Product (DLP), and are measured in units of mGy and mGy-cm, respectively. These indicators are not patient dose, but values generated from the CT scanner acquisition factors. The report includes radiation exposure data for exposures received during this examination. FINDINGS: Lower neck: Normal thyroid. Lungs: No focal consolidation. There is a 3 mm solid nodule in the right middle lobe ( series 3, shalonda ge 31). There is a 3 mm ground-glass nodule in the lingula ( series 3, image 35). Heart/Vascular Structures: Normal heart size. No pericardial effusion. Mild coronary artery calcifica tions. Normal caliber thoracic aorta and main pulmonary artery. Lymph Nodes: No adenopathy Pleura: No pleural effusion or significant pneumothorax. Musculoskeletal: No acute osseous abnormality. Multilevel thoracic spondylosis. Soft tissues: Normal. Upper abdomen: Limited portions of the upper abdomen show a 2.2 cm right low-density adrenal nodule c ompatible with an adenoma. IMPRESSION: 1. No acute intrathoracic abnormality. 2. Bilateral pulmonary nodules. 3. Coronary artery calcifications. 4. Right adrenal adenoma. Radiation optimization: All CT scans at this facility use at least one of these dose optimization joshua hniques: automated exposure control mA and/or kV adjustment per patient size (includes targeted exam s where dose is matched to clinical indication) or iterative reconstruction.
[2024-06-24 05:00] VITALS: BP 148/86; PULSE 72; RESP 19; TEMP 98.2; O2SAT 95
[2024-06-24 07:02] LABS: Basophils # (auto) 0.1 10 ^3/uL (0-0.2); Basophils % (auto) 0.7 % (0.0-2.0); Eosinophils # (auto) 0.3 10 ^3/uL (0-0.8); Eosinophils % (auto) 3.1 % (0.0-7.0); Hematocrit 42.9 % (41.0-53.0); Hemoglobin 14.2 g/dL (13.5-17.5); Lymphocytes # (auto) 2.3 10 ^3/uL (0.4-5.4); Lymphocytes % (auto) 26.6 % (10.0-50.0); Mean Corpuscular Hemoglobin 27.6 pg (28.0-32.0); Mean Corpuscular Hgb Conc. 33.2 g/dL (32.0-36.0); Mean Corpuscular Volume 83.1 fL (80.0-100.0); Monocytes # (auto) 0.8 10 ^3/uL (0-1.3); Monocytes % (auto) 8.6 % (0.0-12.0); Neutrophils # (auto) 5.3 10 ^3/uL (1.6-8.6); Nucleated Red Blood Cells % 0.1 %; Platelet Count (auto) 340 10^3/uL (140-450); Red Blood Cells 5.16 10^6/uL (4.5-5.90); Red Cell Distribution Width 13.9 % (11.8-14.3); White Blood Cell 8.7 10^3/uL (4.4-10.8)
[2024-06-24 07:09] LABS: Anion Gap 7 (5-15); Carbon Dioxide 24 mmol/L (20-31); Chloride 105 mmol/L (98-107); Potassium 4.3 mmol/L (3.5-5.1); Sodium 136 mmol/L (136-145)
[2024-06-24 07:15] LABS: BUN/Creatinine Ratio 6.8 (10.0-20.0); Blood Urea Nitrogen 6 mg/dL (9-23); Glucose 159 mg/dL (74-106)
[2024-06-24 08:00] VITALS: PULSE 77; RESP 18; O2SAT 98
[2024-06-24 08:45] VITALS: BP 130/74; PULSE 75; RESP 19; TEMP 97.4; O2SAT 90
--- NOTE | 2024-06-24 11:39 | DVHDSRES ---
Discharge Summary Date of Admission Resident Creating Document: ROSEMARY BARAJAS RESIDENT Jun 22, 2024 at 23:10 Date of Discharge: Jun 24, 2024 Admitting Diagnosis Acute chest pain Wounds: No wounds present at this time. Labs/Diagnostic Data: Laboratory Results Test 06/24/24 06:01 06/23/24 22:30 06/23/24 21:18 06/23/24 08:15 White Blood Count 8.7 10^3/uL (4.4-10.8) Red Blood Count 5.16 10^6/uL (4.5-5.90) Hemoglobin 14.2 g/dL (13.5-17.5) Hematocrit 42.9 % (41.0-53.0) Mean Corpuscular Volume 83.1 fL (80.0-100.0) Mean Corpuscular Hemoglobin 27.6 pg (28.0-32.0) Mean Corpuscular Hemoglobin Concent 33.2 g/dL (32.0-36.0) Red Cell Distribution Width 13.9 % (11.8-14.3) Platelet Count 340 10^3/uL (140-450) Mean Platelet Volume 7.6 fL (6.9-10.8) Neutrophils (%) (Auto) 61.0 % (37.0-80.0) Lymphocytes (%) (Auto) 26.6 % (10.0-50.0) Monocytes (%) (Auto) 8.6 % (0.0-12.0) Eosinophils (%) (Auto) 3.1 % (0.0-7.0) Basophils (%) (Auto) 0.7 % (0.0-2.0) Neutrophils # (Auto) 5.3 10 ^3/uL (1.6-8.6) Lymphocytes # (Auto) 2.3 10 ^3/uL (0.4-5.4) Monocytes # (Auto) 0.8 10 ^3/uL (0-1.3) Eosinophils # (Auto) 0.3 10 ^3/uL (0-0.8) Basophils # (Auto) 0.1 10 ^3/uL (0-0.2) Nucleated Red Blood Cells 0.1 % Sodium Level 136 mmol/L (136-145) Potassium Level 4.3 mmol/L (3.5-5.1) Chloride Level 105 mmol/L (98-107) Carbon Dioxide Level 24 mmol/L (20-31) Anion Gap 7 (5-15) Blood Urea Nitrogen 6 mg/dL (9-23) Creatinine 0.88 mg/dL (0.700-1.30) Glomerular Filtration Rate Calc 97 mL/min (>90) BUN/Creatinine Ratio 6.8 (10.0-20.0) Serum Glucose 159 mg/dL (74-106) Calcium Level 9.0 mg/dL (8.7-10.4) Urine Color Light-yellow (Yellow) Urine Clarity Clear (Clear) Urine pH 7.0 (5.0-9.0) Urine Specific [place] 1.035 (1.001-1.035) Urine Protein Negative (Negative) Urine Ketones Trace (Negative) Urine Blood Negative /uL (Negative) Urine Nitrite Negative (Negative) Urine Bilirubin Negative (Negative) Urine Urobilinogen Normal mg/dL (Negative) Urine Leukocyte Esterase Negative /uL (Negative) Urine RBC 1 /hpf (0 - 3) Urine WBC 1 /hpf (0 - 3) Urine Squamous Epithelial Cells None seen /hpf (<5) Urine Bacteria None seen /hpf (None Seen) Urine Glucose 4+ mg/dL (Normal) Urine Opiates Screen Neg (NEGATIVE) Urine Fentanyl Screen Neg (NEGATIVE) Urine Barbiturates Screen Neg (NEGATIVE) Urine Phencyclidine Screen Neg (NEGATIVE) Urine Amphetamines Screen Neg (NEGATIVE) Urine Benzodiazepines Screen Neg (NEGATIVE) Urine Cocaine Screen Neg (NEGATIVE) Urine Cannabinoids Screen Neg (NEGATIVE) POC Glucose 161 mg/dl (70-106) Lactic Acid Level 1.0 mmol/L (0.4-2.0) Test 06/23/24 02:15 06/23/24 01:02 06/22/24 22:21 Total Bilirubin 0.4 mg/dL (0.2-1.0) Aspartate Amino Transferase (AST) 20 U/L (13-40) Alanine Aminotransferase (ALT) 27 U/L (7-40) Alkaline Phosphatase 48 U/L (46-116) Total Protein 7.1 g/dL (5.7-8.2) Albumin 4.1 g/dL (3.2-4.8) Troponin I High Sensitivity < 3 ng/L (</=54) Erythrocyte Sedimentation Rate 13 mm/hr (0-20) D-Dimer, Quantitative 0.34 mg/L FEU (0.0-0.49) Hemoglobin A1c 8.2 % A1C (<5.7) C-Reactive Protein High Sensitivity 0.30 mg/dL (<1.0) B-Type Natriuretic Peptide 16.52 pg/mL (0-100) Vitamin B12 Level 259 pg/mL (211-911) Vitamin D 25-Hydroxy 18.2 ng/mL (30.0-100) Thyroid Stimulating Hormone (TSH) 2.08 uIU/mL (0.55-4.78) Other Laboratory Tests 06/24/24 06:01 Brief Hx & Hospital Course: This is a 64 years old male with past medical history of hypertension, hyperlipidemia, type 2 diabetes mellitus presented to the ED with a chief complaint of left-sided chest pain for 2 hours prior to this admission. According to the patient the pain is sharp stabbing, localized 8/10 and aggravated with deep breathing with no relieving factor and associated with dry cough and shortness of breath. He mentioned he never had this kind of pain before . The patient recently traveled to [place] and today he came back from [place] and denies any sick contact. Upon my examination the patient had slight reproducible pain in the left upper chest with deep palpation but states that the pain is different from the one he was experiencing before. Patient also denies dizziness, diaphoresis abdominal pain, nausea, vomiting or any change in bowel and bladder habit. Initial labs were showing a WBC of 14.6 which now slightly decrease it to 12.4. Troponins were negative and BNP was 16.52. D- dimer was on normal range at 0.34, EKG was showing sinus rhythm. Chest x-ray was grossly unremarkable and bilateral lower extremity Doppler ultrasound showed no evidence of DVTs. CT of the chest was performed which showed no acute abnormalities would indeed showed bilateral pulmonary nodules, coronary artery calcifications and right adrenal adenoma. The patient will follow up with his PCP regarding pulmonary renal dose and right adrenal adenoma that was found incidentally. We explained to the patient that the chest pain is noncardiac in nature. To be, the patient was seen and examined at bedside. The patient denied chest pain, shortness of breath, fever any longer complains at this time. We will discharge the patient home with F/U with his PCP in 1 week. patient agreed and understood the plan. ROS Constitutional: Denies weight loss, fever and chills. HEENT: Denies changes in vision and hearing. Respiratory: Denies shortness of breath and cough Cardiovascular: Denies chest discomfort or palpitations GI: Denies abdominal pain, nausea, vomiting and diarrhea. : Denies dysuria and urinary frequency. Musculoskeletal: Denies myalgias and joint pain Skin: Denies rash and pruritus. Neurological: Denies dizziness, headache, vision or hearing problems Physical Examination General: Patient alert and oriented in person, place and time. Patient following commands. HEENT: Normocephalic, atraumatic, moist mucous membranes Respiratory/pulmonary: Clear lungs bilaterally, no associated crackles or wheezes. Cardiovascular: Normal regular heart sounds S1 and S2 with no associated murmurs. There is reproducible pain to palpation at the left upper chest. Abdomen: Abdomen nondistended, there is no pain to palpation in any of the abdominal quadrants, no palpable masses. Extremities: There is no peripheral edema present at the lower extremities. Peripheral Pulses: 3+ Radial (R). 3+ Radial (L). 3+ Dorsalis pedis (R). 3+ Dorsalis pedis(L) Skin: No rashes or pruritus, there is no sacral edema present at this time. Neurological: Intact cranial nerves with no focal neurologic deficits Consults/Reason for consult N/A Operations or Procedures CHEST RADIOGRAPH Indication:cp Technique: Single frontal view of the chest was obtained Comparison: None FINDINGS: Lines and Tubes: None Lungs: No focal consolidation. Pleura: No effusion. No pneumothorax. Cardiomediastinal contours: Unremarkable Bones: No acute osseous abnormality. IMPRESSION: No acute cardiopulmonary disease. Bilateral lower extremity venous duplex Clinical History: edema Comparison: None Technique: Duplex Doppler evaluation of the deep venous systems of both lower extremities from the common femoral veins to the popliteal veins including color Doppler and spectral/pulsed waveform analysis was performed. Findings: RIGHT SIDE: The common femoral vein demonstrates appropriate compressibility and waveform variability. There is compressibility/patency of the great saphenous vein at the proximal thigh. The femoral vein demonstrates appropriate compressibility and waveform variability. The deep femoral vein demonstrates appropriate compressibility and waveform variability. The popliteal vein demonstrates appropriate compressibility and waveform variability. There is normal compressibility at the tibioperoneal trunk. LEFT SIDE: The common femoral vein demonstrates appropriate compressibility and waveform variability. There is compressibility/patency of the great saphenous vein at the proximal thigh. The femoral vein demonstrates appropriate compressibility and waveform variability. The deep femoral vein demonstrates appropriate compressibility and waveform variability. The popliteal vein demonstrates appropriate compressibility and waveform variability. There is normal compressibility at the tibioperoneal trunk. Impression: No right or left femoropopliteal venous thrombosis. Procedure: CT CHEST WITHOUT CONTRAST Reason for study/Clinical History: exclude pneumonia Comparison Study: None available at time of dictation. Exam Date: 06/23/2024 11:40 PM TECHNIQUE: Multidetector CT of the chest was performed from the lung apices to the upper abdomen without the use of intravenous contract. Axial, coronal and sagittal multiplanar reformats were performed. Radiation Dose Information: CT Dose: CTDI volume is 26.4 mGy. Dose-length product is 1046.49 mGy*cm The dose indicators for CT are the volume Computed Tomography (CT) Dose Index (CTDIvol) and the Dose Length Product (DLP), and are measured in units of mGy and mGy-cm, respectively. These indicators are not patient dose, but values generated from the CT scanner acquisition factors. The report includes radiation exposure data for exposures received during this examination. FINDINGS: Lower neck: Normal thyroid. Lungs: No focal consolidation. There is a 3 mm solid nodule in the right middle lobe ( series 3, image 31). There is a 3 mm ground-glass nodule in the lingula ( series 3, image 35). Heart/Vascular Structures: Normal heart size. No pericardial effusion. Mild coronary artery calcifications. Normal caliber thoracic aorta and main pulmonary artery. Lymph Nodes: No adenopathy Pleura: No pleural effusion or significant pneumothorax. Musculoskeletal: No acute osseous abnormality. Multilevel thoracic spondylosis. Soft tissues: Normal. Upper abdomen: Limited portions of the upper abdomen show a 2.2 cm right low- density adrenal nodule compatible with an adenoma. IMPRESSION: 1. No acute intrathoracic abnormality. 2. Bilateral pulmonary nodules. 3. Coronary artery calcifications. 4. Right adrenal adenoma. Condition at Discharge: Good Final Diagnosis/Problems List Acute chest pain likely pleuritic/musculoskeletal, ACS ruled out Possible gram +/- pneumonia, r/o pneumonitis Acute respiratory failure likely due to above. Ruled out PE Primary hypertension Vitamin-D deficiency Type II Diabetes Mellitus Discharge Disposition: Home Discharge Instruct/Medications Diet: Regular Activity: No Restrictions, As Tolerated Follow Up/Referral: F/U with his PCP in 1 week Medications: no meds Discharge Statement: "Patient was advised to return to the ER or call 911 if any headaches, dizziness, shortness of breath, chest pain, abdominal pain, bleeding, fevers, or worsening of medical condition. Patient was counseled about treatment plan, medications, possible side effects, patientverbalized understanding. All questions were answered to the best of my ability. This discharge took greater then 30 minutes in planning, reviewing documentation, counseling the patient, and discussing with other team members." ASSESSMENT ASSESSMENT Assessment Acute chest pain likely pleuritic/musculoskeletal, ACS ruled out Possible gram +/- pneumonia, r/o pneumonitis Acute respiratory failure likely due to above. Ruled out PE Primary hypertension Vitamin-D deficiency Type II Diabetes Mellitus Date of Service: Jun 24, 2024 Billing Provider: JOY KANG MD Common Visit Codes: 34191-RBY/OBS DISCH DAY >30min ROSEMARY BARAJAS RESIDENT Jun 24, 2024 11:39 JOY KANG MD Jun 26, 2024 20:02
[2024-06-24 12:42] VITALS: BP 137/73; PULSE 77; RESP 16; TEMP 97.8; O2SAT 96
[2024-06-24 13:41] VITALS: BP 130/74
== END 2024-06-24 14:56 | disposition home or self-care (01) | DRG 137 ==
LOC: ER 22:13 → TELE 23:10 → TELE-WESTW 06-23 14:13 → WEST WING 06-24 08:51
PROVIDERS: ADMIT Internal Medicine; ATTEND Internal Medicine
DX: J15.69 Pneumonia due to other Gram-negative bacteria (principal); J96.00 Acute respiratory failure, unspecified whether with hypoxia or hypercapnia; I11.9 Hypertensive heart disease without heart failure; E55.9 Vitamin D deficiency, unspecified; E11.9 Type 2 diabetes mellitus without complications; E78.5 Hyperlipidemia, unspecified; F17.210 Nicotine dependence, cigarettes, uncomplicated; M79.18 Myalgia, other site; J98.4 Other disorders of lung; J15.9 Unspecified bacterial pneumonia
CPT/HCPCS: 36415; 71045; 71250; 80048; 80053; 80307; 81001; 82306; 82607; 82962; 83036; 83605; 83880; 84443; 84484; 85025; 85379; 85652; 86141; 93005; 93306; 93970; G0378; J1815